=== PATIENT | female | born 1955 | race Caucasian/White ===

== ENCOUNTER 2018-02-03 14:48 | Emergency (ER) | payer BC ==
--- NOTE | 2018-02-03 15:11 | EDM.PDOC ---
ED HPI GENERAL MEDICAL PROBLEM - General Stated Complaint: Right Knee Pain Time Seen by Provider: 02/03/18 14:50 Source of Information: Reports: Patient History Limitations: Reports: No Limitations - History of Present Illness INITIAL COMMENTS - FREE TEXT/NARRATIVE: This patient is a 62 year old female that presents to the ER. Patient reports that since about Monday she has had right knee pain. She reports that it was swollen, redness, tender, painful. She reports decrease ROM due to pain. She reports she saw Stephanie GARCIA on . Reports it was red then, so put on Augmentin. She reports now the redness is resolved. She reports the pain and stiffness of the knee continues, this is reason for presentation to ER today. The patient reports since Monday no maynard, dizziness, n, v, d, f. She denies injury. Onset Date: 01/30/18 Location: Reports: Lower Extremity, Right Quality: Reports: Ache Severity: Mild Improves with: Reports: Immobilization Worsens with: Reports: Movement Associated Symptoms: Denies: Confusion, Chest Pain, Cough, cough w sputum, Diaphoresis, Fever/Chills, Headaches, Loss of Appetite, Malaise, Nausea/Vomiting , Rash, Seizure, Shortness of Breath, Syncope, Weakness 2 Pain Score (Numeric/FACES): 2 - Related Data Allergies Allergy/AdvReac Type Severity Reaction Status Date / Time diphtheria,pertussis Allergy Shaking Verified 09/24/15 12:32 (acellular),te [Diphth,Pertuss(Acell),Tet Vac] Home Meds: Home Meds Aspirin 81 mg PO DAILY 02/23/14 [History] Amoxicillin/Clavulanate K [Augmentin 500-125 MG] 500 mg TID 02/03/18 [History] Simvastatin 20 mg DAILY 02/03/18 [History] Review of Systems - Review of Systems Review Of Systems: See Below Constitutional: Reports: No Symptoms Eyes: Reports: No Symptoms Ears: Reports: No Symptoms Nose: Reports: No Symptoms Mouth/Throat: Reports: No Symptoms Respiratory: Reports: No Symptoms Cardiovascular: Reports: No Symptoms GI/Abdominal: Reports: No Symptoms Genitourinary: Reports: No Symptoms Musculoskeletal: Reports: Joint Pain (right knee), Joint Swelling (right knee), Other (Patient reports knee was red , but no redness today. ) Skin: Reports: No Symptoms Neurological: Reports: No Symptoms Psychiatric: Reports: No Symptoms ED EXAM, GENERAL - Physical Exam Exam: See Below Exam Limited By: No Limitations General Appearance: Alert, WD/WN, No Apparent Distress Head: Atraumatic Neck: Normal Inspection Respiratory/Chest: No Respiratory Distress, Lungs Clear, Normal Breath Sounds, No Accessory Muscle Use Cardiovascular: Normal Peripheral Pulses, Regular Rate, Rhythm, No Edema, No Gallop, No JVD, No Murmur, No Rub Peripheral Pulses: 2+: Popliteal (L), Popliteal (R), Posterior Tibial (L), Posterior Tibial (R) Back Exam: Normal Inspection, Full Range of Motion Extremities: No Pedal Edema, Normal Capillary Refill, Limited Range of Motion ( decreased extension, flexion due to pain. But is able to have ROM. ), Other ( Right knee pain, tenderness left medial aspect. Mild swelling. No redness, No heat. Pulses +2, cap refill <2 sec, sensory intact. Neurovascular intact. ). No : Increased Warmth Neurological: Alert, Oriented Course - Vital Signs Last Recorded V/S: Last Vital Signs Temp 98.8 F 02/03/18 14:59 Pulse 79 02/03/18 14:59 Resp 18 02/03/18 14:59 BP 145/88 H 02/03/18 14:59 Pulse Ox 96 02/03/18 14:59 - Orders/Labs/Meds Orders: Active Orders 24 hr Category Date Time Status Knee 3V Rt [CR] Stat Exams 02/03/18 14:56 Ordered - Radiology Interpretation Free Text/Narrative:: Right knee: No fx, no dislocation. Radiologist to read for possible joint effusion. Departure - Departure Time of Disposition: 15:11 Disposition: Home, Self-Care 01 Condition: Fair Clinical Impression: Bursitis Qualifiers: Bursitis location: knee Knee bursitis location: infrapatellar bursitis Laterality: right Qualified Code(s): M70.51 - Other bursitis of knee, right knee - Discharge Information *PRESCRIPTION DRUG MONITORING PROGRAM REVIEWED*: No *COPY OF PRESCRIPTION DRUG MONITORING REPORT IN PATIENT HANNA: No Instructions: Prepatellar Bursitis Referrals: Stephanie Antonio PA-C [Primary Care Provider] - Forms: ED Department Discharge Additional Instructions: Followup with your primary care provider Return to the ER for worsening of condition or any emergent concerns such as Significant Redness, Vomiting, Fever. Rest Ice Elevate IbuProfen over the counter 200mg 4 pills every 8 hours as needed for pain and swelling Crutches as needed Continue Augmentin as directed - My Orders Last 24 Hours: My Active Orders 02/03/18 14:56 Knee 3V Rt [CR] Stat - Assessment/Plan Last 24 Hours: My Active Orders 02/03/18 14:56 Knee 3V Rt [CR] Stat Plan: PLEASE SEE RN NOTE FOR PFSH.
== END 2018-02-03 15:50 | disposition home or self-care (01) ==
LOC: CC.ED 14:48
DX: M70.51 Other bursitis of knee, right knee (principal); Z79.82 Long term (current) use of aspirin; Z79.899 Other long term (current) drug therapy; Z88.7 Allergy status to serum and vaccine
CPT/HCPCS: 73562-RT; 99283

== ENCOUNTER → 2018-11-09 | Day surgery (SDC) | payer BC ==
[~2018-11-09] MED LIST: Propofol 200 MG/20 ML SDV IV ONE
[2018-11-09] MEDS: Lactated Ringers 1,000 ML IV SCH (08:22)
[2018-11-09 10:13] VITALS: BP 134/75
--- NOTE | 2018-11-09 14:54 | OR ---
DATE OF OPERATION: 11/09/2018 PREOPERATIVE DIAGNOSIS: ALTERED BOWEL HABITS. POSTOPERATIVE DIAGNOSIS: ALTERED BOWEL HABITS. SURGEON: Darren Kline MD PROCEDURE: DIAGNOSTIC COLONOSCOPY. ANESTHESIA: MAC via ROUTER OPERATOR PIN. COMPLICATIONS: None. SPECIMEN: None. FINDINGS: 1. Full-length colonoscopy. 2. Minimal sigmoid diverticulosis. RECOMMENDATIONS: Followup colonoscopy every 10 years. INDICATIONS: The patient was seen for routine physical. She has been having altered bowel habits in the form of constipation. Stephanie Antonio sent her for a diagnostic colonoscopy. DESCRIPTION OF PROCEDURE: The patient was prepped and draped, placed in the left lateral decubitus position. A lubricated Olympus colonoscope was inserted and easily advanced to the cecum. Direct visualization of the ileocecal valve and appendiceal orifice was accomplished. The bowel prep was fine. Upon withdrawal of the scope throughout the entire length of the colon, I found no signs of any polyps, masses, ulcerations, or bleeding sites. No vascular abnormalities or signs of colitis. There were a few scattered diverticula in the distal sigmoid and rectosigmoid area, but minimal in severity. Rectal vault was benign. Retroflexion of scope in the rectum showed no anal lesions. Air was suctioned, scope removed without complication. TAM/MARK /[id number]
== END ==
LOC: CC.SDS 08:04
PROVIDERS: ATTEND Family Medicine
DX: K59.00 Constipation, unspecified (principal); Z00.00 Encounter for general adult medical examination without abnormal findings; E78.5 Hyperlipidemia, unspecified; E80.4 Gilbert syndrome; R40.0 Somnolence; Z88.7 Allergy status to serum and vaccine; Z79.83 Long term (current) use of bisphosphonates; Z87.39 Personal history of other diseases of the musculoskeletal system and connective tissue
CPT/HCPCS: 45378; G0121; J2704; J7120

== ENCOUNTER 2020-01-07 22:53 | Observation (INO) | payer BC ==
[2020-01-07] MEDS ORDERED: Morphine 4 MG/ML VIAL IVPUSH ONE (22:57)
[2020-01-07] MEDS ORDERED: Ondansetron 8 MG in Sodium Chloride 0.9% 50 ML IV PRN (22:57)
[2020-01-07] MEDS ORDERED: Sodium Chloride 0.9% 1,000 ML IV ONE (23:03)
[2020-01-07] MEDS ORDERED: fentaNYL 100 MCG/2 ML SDV IVPUSH ONE (23:37)
[2020-01-07 23:43] LABS: CHLORIDE,CL 106 mEq/L (98-106); SODIUM,NA 143 mEq/L (136-145)
--- NOTE | 2020-01-08 00:08 | EDM.PDOC ---
ED HPI GENERAL MEDICAL PROBLEM - General Chief Complaint: General Stated Complaint: kidneyn stone Time Seen by Provider: 01/07/20 23:20 Source of Information: Reports: Patient History Limitations: Reports: No Limitations - History of Present Illness INITIAL COMMENTS - FREE TEXT/NARRATIVE: Zahra is a 64 yo female who presents to the ED via private vehicle, accompanied by her daughter, with complaints of severe right flank pain radiating around to her groin. She underwent ESWL at [facility] in [place] this morning. States she did okay post procedure and didn't have any pain. States Dr. Calvo did feel everything went really well with the procedure. Admits to noticing blood in her urine for a few hours afterwards but was told this would be normal. She states this evening around 2200hrs the pain started and has progressively gotten worse. Admits she cant take the pain. States it is always present but severe pain comes in waves as if she is trying to pass a stone. Duration: Getting Worse, Waxing/Waning Location: Reports: Abdomen, Pelvis Right Flank Pain Score (Numeric/FACES): 10 - Related Data Allergies Allergy/AdvReac Type Severity Reaction Status Date / Time diphtheria,pertussis Allergy Shaking Verified 01/07/20 23:03 (acellular),te [Diphth,Pertuss(Acell),Tet Vac] Home Meds: Home Meds Aspirin 81 mg PO DAILY 02/23/14 [History] Simvastatin 20 mg DAILY 02/03/18 [History] Ascorbic Acid [Vitamin C] 1 tab PO DAILY 11/07/18 [History] Past Medical History Cardiovascular History: Reports: High Cholesterol Gastrointestinal History: Reports: Other (See Below) (history of gilbert's syndrome) Genitourinary History: Reports: Renal Calculus Musculoskeletal History: Reports: Other (See Below) Other Musculoskeletal History: Left knee surgery hx - Past Surgical History Female Surgical History: Reports: Lithotripsy/ESWL Musculoskeletal Surgical History: Reports: Other (See Below) Other Musculoskeletal Surgeries/Procedures:: back surgery and knee surgery Social & Family History - Family History Family Medical History: Noncontributory - Tobacco Use Smoking Status *Q: Never Smoker - Caffeine Use Caffeine Use: Reports: None ED ROS GENERAL - Review of Systems Review Of Systems: See Below Constitutional: Denies: Fever, Chills HEENT: Reports: No Symptoms Respiratory: Reports: No Symptoms Cardiovascular: Reports: No Symptoms GI/Abdominal: Reports: Abdominal Pain, Nausea, Vomiting. Denies: Bloody Stool, Constipation, Diarrhea : Reports: Flank Pain, Hematuria, Urgency ED EXAM, GENERAL - Physical Exam Exam: See Below Exam Limited By: No Limitations General Appearance: Moderate Distress, Severe Distress Head: Atraumatic, Normocephalic Respiratory/Chest: No Respiratory Distress, Lungs Clear, Normal Breath Sounds, No Accessory Muscle Use Cardiovascular: Regular Rate, Rhythm, No Murmur GI/Abdominal: Tender (right lower quadrant) Back Exam: CVA Tenderness (R) Extremities: Normal Inspection, No Pedal Edema Neurological: Alert, Oriented, Normal Cognition Skin Exam: Warm, Dry, Intact, Normal Color, No Rash Course - Vital Signs Last Recorded V/S: Last Vital Signs Temp 97.4 F 01/07/20 23:23 Pulse 82 01/07/20 23:23 Resp 18 01/07/20 23:23 BP 142/67 H 01/07/20 23:23 Pulse Ox 98 01/07/20 23:23 - Orders/Labs/Meds Orders: Active Orders 24 hr Category Date Time Status Abdomen Pelvis wo Cont [CT] Stat Exams 01/07/20 23:08 Ordered CULTURE URINE [RM] Stat Lab 01/07/20 23:08 Received Ondansetron [Zofran] 8 mg Med 01/07/20 22:57 Active Sodium Chloride 0.9% [Normal Saline] 50 ml IV Q8H Sodium Chloride 0.9% [Normal Saline] 1,000 ml Med 01/07/20 23:03 Active IV .BOLUS Medication Orders Ondansetron HCl 8 mg/ Sodium (Chloride) 54 mls @ 100 mls/hr IV Q8H PRN PRN Reason: Nausea Last Admin: 01/07/20 23:10 Dose: 100 mls/hr Documented by: REENA Sodium Chloride (Normal Saline) 1,000 mls @ 999 mls/hr IV .BOLUS ONE Stop: 01/08/20 00:03 Last Admin: 01/07/20 23:40 Dose: 999 mls/hr Documented by: REENA Labs: Laboratory Tests 01/07/20 01/07/20 01/07/20 Range/Units 23:08 23:08 23:08 WBC 10.9 H (5.0-10.0) 10^3/uL RBC 4.49 (4.00-5.50) 10^6/uL Hgb 13.1 (12.0-16.0) g/dL Hct 39.6 (37.0-47.0) % MCV 88.2 (82.0-94.0) fL MCH 29.2 (27.0-32.0) pg MCHC 33.1 (33.0-38.0) g/dL RDW Coeff of Aracely 13.1 (11.0-15.0) % Plt Count 390 (150-400) 10^3/uL MPV 10.6 fL Sodium 143 (136-145) mEq/L Potassium 3.8 (3.5-5.0) mEq/L Chloride 106 (98-106) mEq/L Carbon Dioxide 23 (21-32) mmol/L BUN 22 H (7-18) mg/dL Creatinine 1.3 H (0.6-1.0) mg/dL Est Cr Clr Drug Dosing 44.68 mL/min Estimated GFR (MDRD) 41 L (>=60) mL/min Glucose 180 H D (75-99) mg/dL Calcium 9.2 (8.4-10.1) mg/dL Total Bilirubin 1.0 (0.0-1.0) mg/dL AST 22 (15-37) U/L ALT 23 (12-78) U/L Alkaline Phosphatase 96 (46-116) U/L C-Reactive Protein < 0.2 L (0.2-0.8) mg/dL Total Protein 7.6 (6.4-8.2) g/dL Albumin 4.0 (3.4-5.0) g/dL Urine Color Yellow (YELLOW) Urine Appearance Clear (CLEAR) Urine pH 7.0 (4.5-8.0) Ur Specific [place] 1.025 H (1.003-1.020) Urine Protein 100 H (NEGATIVE) mg/dL Urine Glucose (UA) Negative (NEGATIVE) mg/dL Urine Ketones 40 H (NEGATIVE) mg/dL Urine Occult Blood Large H (NEGATIVE) Urine Nitrite Negative (NEGATIVE) Urine Bilirubin Negative (NEGATIVE) Urine Urobilinogen 0.2 (0.2-1.0) EU/dL Ur Leukocyte Esterase Small H (NEGATIVE) Urine RBC 5-10 H (0-5) /HPF Urine WBC Not seen (0-5) /HPF Urinalysis Comment Meds: Medications Generic Name Dose Route Start Last Admin Trade Name Freq PRN Reason Stop Dose Admin Ondansetron HCl 8 mg/ Sodium 54 mls @ 100 mls/hr 01/07/20 22:57 01/07/20 23:10 Chloride IV 100 mls/hr Q8H PRN Administration Nausea Sodium Chloride 1,000 mls @ 999 mls/hr 01/07/20 23:03 01/07/20 23:40 Normal Saline IV 01/08/20 00:03 999 mls/hr .BOLUS ONE Administration Discontinued Medications Generic Name Dose Route Start Last Admin Trade Name Freq PRN Reason Stop Dose Admin Fentanyl 50 mcg 01/07/20 23:37 01/07/20 23:43 Sublimaze IVPUSH 01/07/20 23:38 50 mcg ONETIME ONE Administration Morphine Sulfate 4 mg 01/07/20 22:57 01/07/20 23:10 Morphine IVPUSH 01/07/20 22:58 4 mg ONETIME ONE Administration - Radiology Interpretation Free Text/Narrative:: CT report of the abdomen/pelvis did show two obstructing calculi in the distal right ureter measuring up to 0.3cm. Moderate right hydroureteronephrosis. Additional non-obstructing renal calculi are seen bilaterally (3 on the right and 4 on the left). Largest right renal calculus measures up to 5mm. The largest on the left measures up to 3mm. No left hydronephrosis is seen. CT Results Date: 01/08/20 Departure - Departure Time of Disposition: 00:58 Disposition: Refer to Observation Clinical Impression: Right nephrolithiasis - Discharge Information Referrals: Stephanie Antonio PA-C [Primary Care Provider] - Sepsis Event Note (ED) - Evaluation Sepsis Screening Result: No Definite Risk - Focused Exam Vital Signs: Vital Signs Temp Pulse Resp BP Pulse Ox 01/07/20 23:23 97.4 F 82 18 142/67 H 98 - Problem List & Annotations (1) Right nephrolithiasis SNOMED Code(s): 95601108 Code(s): N20.0 - CALCULUS OF KIDNEY Status: Acute Current Visit: Yes - My Orders Last 24 Hours: My Active Orders 01/07/20 22:57 Ondansetron [Zofran] 8 mg Sodium Chloride 0.9% [Normal Saline] 50 ml IV Q8H 01/07/20 23:03 Sodium Chloride 0.9% [Normal Saline] 1,000 ml IV .BOLUS 01/07/20 23:08 Abdomen Pelvis wo Cont [CT] Stat CULTURE URINE [RM] Stat - Assessment/Plan Admission H&P: Please use this note as an admission H&P Last 24 Hours: My Active Orders 01/07/20 22:57 Ondansetron [Zofran] 8 mg Sodium Chloride 0.9% [Normal Saline] 50 ml IV Q8H 01/07/20 23:03 Sodium Chloride 0.9% [Normal Saline] 1,000 ml IV .BOLUS 01/07/20 23:08 Abdomen Pelvis wo Cont [CT] Stat CULTURE URINE [RM] Stat Plan: Initially, we did have some difficulty getting pain relief for Zahra. She was given 4mg of Morphine with 8mg of Zofran with minimal to no relief. Patient was in moderate to severe pain and 50mcg of Fentanyl was given. She did seem to get mild relief from the Fentanyl as well. She continued to have waxing/waning discomfort with times of severe discomfort. Consulted with Dr. Calvo in regards to recent ESWL. Recommended admission for pain control and did feel giving Toradol and Flomax was appropriate post procedure. Advised if unable to get pain under control or still symptomatic tomorrow to reconsult at that time. Will adm it to Dr. Kline's services under observation status. Patient transferred to the floor via wheelchair in satisfactory condition.
[2020-01-08] MEDS ORDERED: Acetaminophen 325 MG Tab PO PRN (01:13)
[2020-01-08] MEDS ORDERED: Ondansetron 4 MG/2 ML SDV IV PRN (01:13)
[2020-01-08] MEDS ORDERED: Ketorolac 30 MG/ML SDV IVPUSH PRN (01:13)
[2020-01-08] MEDS ORDERED: Morphine 2 MG/ML SYRINGE IVPUSH PRN (01:13)
[2020-01-08] MEDS ORDERED: Tamsulosin 0.4 MG Cap.ER PO ONE (01:15)
[2020-01-08] MEDS ORDERED: Sodium Chloride 0.9% 1,000 ML IV SCH (01:15)
[2020-01-08] MEDS ORDERED: Aspirin 81 MG Tab.Chew PO SCH (08:00)
[2020-01-08] MEDS ORDERED: Tamsulosin 0.4 MG Cap.ER PO SCH (20:00)
[2020-01-08] MEDS ORDERED: Simvastatin 20 MG Tab PO SCH (20:00)
--- NOTE | 2020-01-08 20:14 | PCM.DCSUM1 ---
Discharge Summary - Hospital Course Free Text/Narrative:: Zahra is a 64 year old female who presented to the ER with complaints of right flank pain. Pain has been severe, radiating around to her right groin. Patient was s/p ESWL at [facility] in [place] yesterday morning. Procedure went well and was pain free after the procedure. Last evening, noted blood in her urine and had been told that was to be expected. Around 10 pm, developed severe pain in the right flank area and unable to tolerate the pain. States it feels like she is passing a stone. CT scan did show 2 distal ureters measuring 3 mm each. Noted to have hydronephrosis. Was given IV Morphine and fentanyl, did have sedation from these, oxygen needed to be started. Did achieve pain control. Dr. Calvo was consulted. Recommended NSAIDS and Flomax. Started on IV fluids. Diagnosis: Stroke: No Modified Ramírez Scale: No Symptoms at All Modified Denali Scale Score: 0 - Discharge Data Discharge Date: 01/08/20 Discharge Disposition: Home, Self-Care 01 Condition: Fair - Referral to Home Health Primary Care Physician: Stephanie Antonio PA-C - Discharge Diagnosis/Problem(s) (1) Right nephrolithiasis SNOMED Code(s): 41767559 ICD Code: N20.0 - CALCULUS OF KIDNEY Status: Acute - Patient Summary/Data Complications: none Hospital Course: Patient is feeling much better this am. Has not had any pain since in ER last night. Nausea has subsided but does not have much of an appetite this am. Was able to eat toast without further nausea or vomiting. Taking fluids well. Did take several hours after admission to void. Urine was strained, no stone as of yet. Abdomen is tender to right lower quadrant but minimal per patient. Is ambulating without difficulty. Will discharge home on Toradol and Flomax, use norco as needed for more severe pain. Continue to strain urine. Follow up with Stephanie Antonio in one week or sooner if needed. Continue to push fluids on discharge. - Patient Instructions Diet: Usual Diet as Tolerated Activity: As Tolerated - Discharge Plan *PRESCRIPTION DRUG MONITORING PROGRAM REVIEWED*: No *COPY OF PRESCRIPTION DRUG MONITORING REPORT IN PATIENT HANNA: No Prescriptions/Med Rec: Tamsulosin [Flomax] 0.4 mg PO BEDTIME #7 cap.er Acetaminophen/HYDROcodone [Bailey 325-5 MG] 1 tab PO Q4H #30 tablet Ketorolac [Toradol] 10 mg PO Q6H PRN #20 tab PRN Reason: Pain Home Medications: Home Meds Aspirin 81 mg PO DAILY 02/23/14 [History] Simvastatin 20 mg DAILY 02/03/18 [History] Ascorbic Acid [Vitamin C] 1 tab PO DAILY 11/07/18 [History] Acetaminophen/HYDROcodone [Bailey 325-5 MG] 1 tab PO Q4H #30 tablet 01/08/20 [Rx] Ketorolac [Toradol] 10 mg PO Q6H PRN #20 tab 01/08/20 [Rx] Tamsulosin [Flomax] 0.4 mg PO BEDTIME #7 cap.er 01/08/20 [Rx] Forms: ED Department Discharge Referrals: Stephanie Antonio PA-C [Primary Care Provider] - (Follow up with Stephanie Antonio in one week) - Discharge Summary/Plan Comment DC Time >30 min.: No - General Info Date of Service: 01/08/20 Admission Dx/Problem (Free Text: Nephrolithiasis Functional Status: Reports: Pain Controlled, Tolerating Diet, Ambulating, Urinating - Review of Systems General: Denies: Fever, Weakness, Fatigue HEENT: Reports: No Symptoms Pulmonary: Reports: No Symptoms Cardiovascular: Reports: No Symptoms Gastrointestinal: Reports: Abdominal Pain Genitourinary: Denies: Dysuria, Flank Pain Musculoskeletal: Reports: No Symptoms Skin: Reports: No Symptoms Neurological: Reports: No Symptoms - Patient Data Vitals - Most Recent: Last Vital Signs Temp 98.8 F 01/08/20 08:00 Pulse 60 01/08/20 08:00 Resp 16 01/08/20 08:00 BP 122/62 01/08/20 08:00 Pulse Ox 100 01/08/20 08:00 Weight - Most Recent: 210 lb I&O - Last 24 hours: Intake & Output 01/08/20 01/08/20 01/08/20 06:59 14:59 22:59 Intake Total 0 Output Total 0 Balance 0 Lab Results - Last 24 hrs: Laboratory Results - last 24 hr 01/07/20 01/07/20 01/07/20 Range/Units 23:08 23:08 23:08 WBC 10.9 H (5.0-10.0) 10^3/uL RBC 4.49 (4.00-5.50) 10^6/uL Hgb 13.1 (12.0-16.0) g/dL Hct 39.6 (37.0-47.0) % MCV 88.2 (82.0-94.0) fL MCH 29.2 (27.0-32.0) pg MCHC 33.1 (33.0-38.0) g/dL RDW Coeff of Aracely 13.1 (11.0-15.0) % Plt Count 390 (150-400) 10^3/uL MPV 10.6 fL Neut % (Auto) (35-85) % Lymph % (Auto) (10-55) % Heard % (Auto) (0-16) % Eos % (Auto) (0-5) % Baso % (Auto) (0-3) % Neut # (Auto) (1.80-7.00) 10^3/uL Lymph # (Auto) (1.00-4.80) 10^3/uL Heard # (Auto) (0.00-0.80) 10^3/uL Eos # (Auto) (0.00-0.45) 10^3/uL Baso # (Auto) 10^3/uL Sodium 143 (136-145) mEq/L Potassium 3.8 (3.5-5.0) mEq/L Chloride 106 (98-106) mEq/L Carbon Dioxide 23 (21-32) mmol/L BUN 22 H (7-18) mg/dL Creatinine 1.3 H (0.6-1.0) mg/dL Est Cr Clr Drug Dosing 44.68 mL/min Estimated GFR (MDRD) 41 L (>=60) mL/min Glucose 180 H D (75-99) mg/dL Calcium 9.2 (8.4-10.1) mg/dL Total Bilirubin 1.0 (0.0-1.0) mg/dL AST 22 (15-37) U/L ALT 23 (12-78) U/L Alkaline Phosphatase 96 (46-116) U/L C-Reactive Protein < 0.2 L (0.2-0.8) mg/dL Total Protein 7.6 (6.4-8.2) g/dL Albumin 4.0 (3.4-5.0) g/dL Urine Color Yellow (YELLOW) Urine Appearance Clear (CLEAR) Urine pH 7.0 (4.5-8.0) Ur Specific [place] 1.025 H (1.003-1.020) Urine Protein 100 H (NEGATIVE) mg/dL Urine Glucose (UA) Negative (NEGATIVE) mg/dL Urine Ketones 40 H (NEGATIVE) mg/dL Urine Occult Blood Large H (NEGATIVE) Urine Nitrite Negative (NEGATIVE) Urine Bilirubin Negative (NEGATIVE) Urine Urobilinogen 0.2 (0.2-1.0) EU/dL Ur Leukocyte Esterase Small H (NEGATIVE) Urine RBC 5-10 H (0-5) /HPF Urine WBC Not seen (0-5) /HPF Urinalysis Comment 01/08/20 01/08/20 Range/Units 07:39 07:39 WBC 13.2 H (5.0-10.0) 10^3/uL RBC 4.12 (4.00-5.50) 10^6/uL Hgb 12.1 (12.0-16.0) g/dL Hct 37.5 (37.0-47.0) % MCV 91.0 (82.0-94.0) fL MCH 29.4 (27.0-32.0) pg MCHC 32.3 L (33.0-38.0) g/dL RDW Coeff of Aracely 13.3 (11.0-15.0) % Plt Count 331 (150-400) 10^3/uL MPV fL Neut % (Auto) 79.9 (35-85) % Lymph % (Auto) 9.8 L (10-55) % Heard % (Auto) 10.1 (0-16) % Eos % (Auto) 0.1 (0-5) % Baso % (Auto) 0.1 (0-3) % Neut # (Auto) 10.53 H (1.80-7.00) 10^3/uL Lymph # (Auto) 1.29 (1.00-4.80) 10^3/uL Heard # (Auto) 1.33 H (0.00-0.80) 10^3/uL Eos # (Auto) 0.01 (0.00-0.45) 10^3/uL Baso # (Auto) 0.01 10^3/uL Sodium 146 H (136-145) mEq/L Potassium 4.6 D (3.5-5.0) mEq/L Chloride 111 H (98-106) mEq/L Carbon Dioxide 26 (21-32) mmol/L BUN 22 H (7-18) mg/dL Creatinine 1.3 H (0.6-1.0) mg/dL Est Cr Clr Drug Dosing 44.68 mL/min Estimated GFR (MDRD) 41 L (>=60) mL/min Glucose 128 H D (75-99) mg/dL Calcium 8.8 (8.4-10.1) mg/dL Total Bilirubin (0.0-1.0) mg/dL AST (15-37) U/L ALT (12-78) U/L Alkaline Phosphatase (46-116) U/L C-Reactive Protein (0.2-0.8) mg/dL Total Protein (6.4-8.2) g/dL Albumin (3.4-5.0) g/dL Urine Color (YELLOW) Urine Appearance (CLEAR) Urine pH (4.5-8.0) Ur Specific [place] (1.003-1.020) Urine Protein (NEGATIVE) mg/dL Urine Glucose (UA) (NEGATIVE) mg/dL Urine Ketones (NEGATIVE) mg/dL Urine Occult Blood (NEGATIVE) Urine Nitrite (NEGATIVE) Urine Bilirubin (NEGATIVE) Urine Urobilinogen (0.2-1.0) EU/dL Ur Leukocyte Esterase (NEGATIVE) Urine RBC (0-5) /HPF Urine WBC (0-5) /HPF Urinalysis Comment Med Orders - Current: Current Medications Discontinued Medications Acetaminophen (Tylenol) 650 mg PO Q4H PRN PRN Reason: Pain (Mild 1-3)/fever Aspirin (Aspirin) 81 mg PO DAILY [facility] Last Admin: 01/08/20 09:40 Dose: 81 mg Documented by: Fentanyl (Sublimaze) 50 mcg IVPUSH ONETIME ONE Stop: 01/07/20 23:38 Last Admin: 01/07/20 23:43 Dose: 50 mcg Documented by: Ondansetron HCl 8 mg/ Sodium (Chloride) 54 mls @ 100 mls/hr IV Q8H PRN PRN Reason: Nausea Stop: 01/08/20 01:13 Last Admin: 01/07/20 23:10 Dose: 100 mls/hr Documented by: Sodium Chloride (Normal Saline) 1,000 mls @ 999 mls/hr IV .BOLUS ONE Stop: 01/08/20 00:03 Last Admin: 01/07/20 23:40 Dose: 999 mls/hr Documented by: Sodium Chloride (Normal Saline) 1,000 mls @ 125 mls/hr IV ASDIRECTED LINDA Last Admin: 01/08/20 07:05 Dose: 125 mls/hr Documented by: Ketorolac Tromethamine (Toradol) 30 mg IVPUSH Q6H PRN PRN Reason: Pain Stop: 01/13/20 01:06 Last Admin: 01/08/20 01:30 Dose: 30 mg Documented by: Morphine Sulfate (Morphine) 4 mg IVPUSH ONETIME ONE Stop: 01/07/20 22:58 Last Admin: 01/07/20 23:10 Dose: 4 mg Documented by: Morphine Sulfate (Morphine) 2 mg IVPUSH Q1H PRN PRN Reason: Pain Ondansetron HCl (Zofran) 4 mg IV Q4H PRN PRN Reason: Nausea/Vomiting Simvastatin (Zocor) 20 mg PO BEDTIME [facility] Tamsulosin HCl (Flomax) 0.4 mg PO BEDTIME [facility] Tamsulosin HCl (Flomax) 0.4 mg PO ONETIME ONE Stop: 01/08/20 01:16 Last Admin: 01/08/20 01:30 Dose: 0.4 mg Documented by: - Exam General: Reports: Alert, Oriented HEENT: Reports: Mucous Membr. Moist/[place] Neck: Reports: Supple Lungs: Reports: Clear to Auscultation, Normal Respiratory Effort Cardiovascular: Reports: Regular Rate, Regular Rhythm GI/Abdominal Exam: Normal Bowel Sounds, Soft, Non-Tender Extremities: Normal Inspection, No Pedal Edema Skin: Reports: Warm, Dry Neurological: Reports: No New Focal Deficit
== END 2020-01-08 11:25 | disposition home or self-care (01) ==
LOC: CC.ED 22:53 → UNDOADMOB 01-08 00:46 → CC.MS 01-08 00:46
PROVIDERS: ADMIT Physician Assistant Medical; ATTEND Family Medicine
DX: N13.2 Hydronephrosis with renal and ureteral calculous obstruction (principal); Z88.7 Allergy status to serum and vaccine; Z79.82 Long term (current) use of aspirin; Z79.899 Other long term (current) drug therapy; Z98.890 Other specified postprocedural states
CPT/HCPCS: 36415; 74176; 80048; 80053; 81001; 85025; 85027; 86140; 87086; 96361; 96365; 96375; 99285-25; A9270-GY; G0378; J1885; J2270; J2405; J3010; J7030; J7050

== ENCOUNTER 2025-01-31 09:45 | Day surgery (SDC) | payer MEDICARE, BC ==
[2025-01-31] MEDS: Lactated Ringers 1,000 ML IV SCH (10:00)
[2025-01-31] MEDS ORDERED: fentaNYL 50 MCG/ML SDV ONE (10:39)
[2025-01-31] MEDS ORDERED: Propofol 200 MG/20 ML SDV ONE ×2 (10:39)
== END 2025-01-31 11:57 | disposition home or self-care (01) ==
LOC: CC.SDS 09:45
PROVIDERS: ATTEND Family Medicine
DX: Z12.11 Encounter for screening for malignant neoplasm of colon (principal); K57.30 Diverticulosis of large intestine without perforation or abscess without bleeding; Z80.0 Family history of malignant neoplasm of digestive organs; E78.5 Hyperlipidemia, unspecified; Z88.8 Allergy status to other drugs, medicaments and biological substances; Z79.899 Other long term (current) drug therapy
CPT/HCPCS: J2704; J3010; J7120